=== PATIENT | female | born 1950 | race Caucasian/White ===

== ENCOUNTER → 2016-11-08 | Outpatient (CLI) | payer MEDICARE ==
[~2016-11-08] MED LIST: CYMBALTA30 MG PO; LEVSIN PO; LORTAB 5/500 TA1 TA2 PO; MIRAPEX0.25 MG PO; MOBIC PO; PHENERGAN PO; PROTONIX PO; PROZAC PO; SULINDAC150 MG; TRAZODONE PO; WALMART PHARMACY; ZOFRAN ODT4 MG PO
--- NOTE | ~2016-11-08 | MR84 ---
[facility] A Service of [facility] RADIOLOGY TEXT RESULTS PATIENT: HAWA PERRY LOCATION: [facility] : 50 UNIT #: [id number] AGE: [address]: ЕЛЕНА RENAE APRN SEX: F ORDER DR: [id number] [address] [address] [id number] O MR#: [id number] Acc #: [id number] NAME: HAWA PERRY : 1950 SEX: F STUDY DATE/TIME: 11/08/2016 17:49 UNIT: [facility] ROOM: STUDY DESCRIPTION: MR Hip Wo Contrast Rt Attending Physician: Елена Renae Aprn Referring Physician: Елена Renae Aprn Ordering Physician: Tasha Renae A.P.R.N. Primary Care Physician: Solomon Quezada M.D. [facility] REPORT This report is preliminary unless electronic signature is present. EXAM MRI right hip and pelvis HISTORY Right hip pain beginning 1 month ago. Patient states pain comes and goes. COMPARISON Right hip and pelvis 11/01/2016 TECHNIQUE Multiplanar multiecho imaging was form hips and pelvis utilizing a high field magnet dedicated protocol. FINDINGS The examination demonstrates early osteoarthritic change of the right hip with mild asymmetric joint space narrowing along the anterior aspect of hip joint with a small amount of subchondral edema and cystic change. Mild degeneration of the anterosuperior labrum with a possible developing paralabral cyst. No joint effusion. Left hip demonstrates only a trace amount of anterior edema as well as some mild degeneration of the anterosuperior labrum. Pelvic and proximal thigh musculature appears normal. Normal tendinous attachments about hips and pelvis. Internal pelvic structures unremarkable. IMPRESSOIN Early osteoarthritis of the right hip with a small amount of subchondral edema and cystic change anterior weightbearing aspect right acetabulum as well as degeneration of the anterosuperior labrum and a suspected developing paralabral cyst. Similar but less pronounced changes also noted within the anterior left hip. Dictated by... [facility] A Service of [facility] RADIOLOGY TEXT RESULTS PATIENT: HAWA PERRY LOCATION: [facility] : 50 UNIT #: [id number] AGE: [address]: ЕЛЕНА RENAE APRN SEX: F ORDER DR: Liz Grady M.D. THIS IS AN ELECTRONICALLY VERIFIED REPORT Liz Grady M.D. at 11/10/2016 6:35 PM ISREAL/pro TD: 11/09/2016 18:58 JOB #: [id number] [facility] REPORT Page 1 of 1
--- NOTE | ~2016-11-08 | MR104 ---
[facility] A Service of [facility] RADIOLOGY TEXT RESULTS PATIENT: HAWA PERRY LOCATION: [facility] : 50 UNIT #: [id number] AGE: [address]: ЕЛЕНА RENAE APRN SEX: F ORDER DR: [id number] [address] [address] [id number] O MR#: [id number] Acc #: [id number] NAME: HAWA PERRY : 1950 SEX: F STUDY DATE/TIME: 11/08/2016 16:41 UNIT: [facility] ROOM: STUDY DESCRIPTION: MR Knee Wo Contrast Rt Attending Physician: Елена Renae Aprn Referring Physician: Елена Renae Aprn Ordering Physician: Елена Renea Aprn Primary Care Physician: Solomon Quezada M.D. MRI CENTER REPORT This report is preliminary unless electronic signature is present. EXAM MRI of the right knee without contrast HISTORY 66-year-old female right knee pain mainly patellofemoral region for uno-yx-rxalh weeks. Knee pops. COMPARISON Right knee films 11/01/2016 FINDINGS Multiplanar multiecho imaging was performed of the right knee utilizing a high field magnet dedicated protocol. Examination demonstrates developing tricompartment osteoarthritis with multifocal chondromalacia with areas of moderate-grade chondromalacia medial femoral condyle with a 8 mm focus of subchondral edema, this appears to represent near full-thickness cartilage loss off the central weightbearing aspect of the medial femoral condyle. In the lateral compartment there is moderate grade to high-grade chondromalacia posterior weightbearing aspect lateral femoral condyle measuring up to 0.7 cm. In the patellofemoral compartment [id number] grade chondromalacia medial patellar facet. 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 In the lateral compartment there is diffuse myxoid degeneration of lateral meniscus with a horizontal cleavage tear extending from midbody segment into the posterior horn of the lateral meniscus. Anterior-posterior cruciate ligaments appear intact. The collateral ligaments and extensor mechanism unremarkable. Extraarticular soft tissues appear normal. Patient does demonstrate a small popliteal cyst. IMPRESSION 1. 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 There is also a small amount of edema medial tibial plateau. Additional area of high-grade chondromalacia noted lateral femoral condyle. 2. 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 3. Myxoid degeneration of the lateral meniscus with a horizontal cleavage tear extending from midbody segment into the posterior horn of the lateral meniscus. Dictated by... Liz Grady M.D. THIS IS AN ELECTRONICALLY VERIFIED REPORT Liz Grady M.D. at 11/10/2016 6:35 PM ISREAL/zeenat TD: 11/09/2016 18:59 JOB #: [id number] [facility] REPORT Page 1 of 1
== END | disposition home or self-care (01) ==
LOC: SMRI 09:10
DX: M25.551 Pain in right hip (principal); M25.561 Pain in right knee; M16.11 Unilateral primary osteoarthritis, right hip; M17.11 Unilateral primary osteoarthritis, right knee; M94.261 Chondromalacia, right knee; M23.221 Derangement of posterior horn of medial meniscus due to old tear or injury, right knee; M23.251 Derangement of posterior horn of lateral meniscus due to old tear or injury, right knee; M25.461 Effusion, right knee
CPT/HCPCS: 73721